=== PATIENT | male | born 1985 | race Caucasian/White ===

== ENCOUNTER 2017-07-30 18:46 | Emergency (ER) | payer SELFPAY ==
[~2017-07-30] VITALS: Ht 180.3 cm; Wt 98.1 kg
[2017-07-30] MEDS ORDERED: ONDANSETRON ODT 8 MG PO ONE (19:30)
[2017-07-30] MEDS ORDERED: KETOROLAC 30 MG/1 ML IM ONE (19:30)
[2017-07-30] MEDS ORDERED: ONDANSETRON ODT 8 MG ONE (19:31)
[2017-07-30] MEDS ORDERED: KETOROLAC 30 MG/1 ML ONE (19:32)
[2017-07-30 19:46] LABS: BASOPHILS # (AUTO) 0.11 x10^3/uL (0-0.1); BASOPHILS % (AUTO) 1 % (0-1); EOSINOPHILS % (AUTO) 6 % (1-7); LYMPHOCYTES # (AUTO) 2.18 x10^3/uL (1-3.4); LYMPHOCYTES % (AUTO) 19 % (22-44); MD NO; MEAN CORPUSCULAR HEMOGLOBIN 30.4 pg (27.5-34.5); MEAN CORPUSCULAR HGB CONC 33.8 g/dL (33.2-36.2); MEAN CORPUSCULAR VOLUME 89.9 fL (81-97); MEAN PLATELET VOLUME 8.6 fL (7.4-10.4); MONOCYTES # (AUTO) 0.71 x10^3/uL (0.2-0.8); MONOCYTES % (AUTO) 6 % (2-9); NEUTROPHILS # (AUTO) 7.97 x10^3/uL (1.8-6.8); NEUTROPHILS % (AUTO) 68 % (42-75); PLATELET COUNT 343 x10^3/uL (130-400); RED BLOOD COUNT 4.73 x10^6/uL (4.38-5.82); RED CELL DISTRIBUTION WIDTH 13.3 % (9.4-14.8)
[2017-07-30 19:53] LABS: MICROSCOPIC NOT IND
[2017-07-30 19:54] LABS: ALANINE AMINOTRANSFERASE 26 U/L (12-78); ALBUMIN 3.7 g/dL (3.4-5.0); ANION GAP 10 mmol/L (5-15); CHLORIDE 103 mmol/L (98-107); CREATININE 0.86 mg/dL (0.7-1.3)
[2017-07-30 19:56] LABS: ALKALINE PHOSPHATASE 68 U/L (45-117); BILIRUBIN,TOTAL 0.6 mg/dL (0.2-1.0); TOTAL PROTEIN 7.5 g/dL (6.4-8.2)
[2017-07-30 20:02] LABS: CULTURE INDICATED? NO
[2017-07-30 20:17] VITALS: BP 128/65
[2017-07-30] MEDS ORDERED: HYDROcodone/APAP 5/325 TABLET ONE (20:47)
[2017-07-30] MEDS ORDERED: HYDROcodone/APAP 5/325 TABLET PO ONE (21:00)
== END 2017-07-30 20:58 | disposition home or self-care (01) ==
LOC: ED 20:20
DX: R10.11 Right upper quadrant pain (principal); R10.13 Epigastric pain
CPT/HCPCS: 36415; 76700; 80053; 81003; 83690; 85025; 96372; 99285; J1885; Q0162

== ENCOUNTER 2019-02-25 18:05 | Emergency (ER) | payer SELFPAY ==
[~2019-02-25] VITALS: Ht 180.3 cm; Wt 110.8 kg
[2019-02-25 18:16] VITALS: BP 141/89
--- NOTE | 2019-02-25 18:32 | NUR ---
PT IN RADIOLOGY.
--- NOTE | 2019-02-25 18:34 | NUR ---
PT BACK FROM RADIOLOGY. PT HERE WITH MULTIPLE COMPLAINTS, STATES ALL STARTED MONDAY.
[2019-02-25] MEDS ORDERED: KETOROLAC 30 MG/1 ML IM ONE (19:00)
[2019-02-25] MEDS ORDERED: PROMETHAZINE/COD. 10MG/6.25MG/5 ML ORAL SOL PO ONE (19:00)
--- NOTE | 2019-02-25 19:08 | NUR ---
PT STATES PAIN IN CHEST IS GETTING WORSE WITH COUGHING. PA NOTIFIED. NEW ORDERS RECEIVED AND MEDICATION REQUESTED FROM PHARMACY.
[2019-02-25] MEDS ORDERED: KETOROLAC 30 MG/1 ML ONE (19:36)
--- NOTE | 2019-02-25 19:37 | NUR ---
PT MEDICATED PER ORDERS.
--- NOTE | 2019-02-25 20:00 | NUR ---
Patient/Caregiver given discharge instructions and they have confirmed that they understand the instructions. Patient ambulatory with steady gait.
== END 2019-02-25 20:02 | disposition home or self-care (01) ==
LOC: ED 19:55
DX: B34.9 Viral infection, unspecified (principal); R07.89 Other chest pain
CPT/HCPCS: 71046; 93005; 96372; 99283; J1885